=== PATIENT | female | born 1975 | race American Indian/Alaskan Native ===

== ENCOUNTER 2016-08-05 15:09 | Emergency (ER) | payer MEDICAID ==
[2016-08-05 15:09] VITALS: BMI 25.1
[2016-08-05 15:13] VITALS: RESP 18; O2SAT 100
[2016-08-05] MEDS ORDERED: Sodium Chloride 0.9% 1,000 ML IV ONE (15:29)
[2016-08-05] MEDS ORDERED: Sodium Chloride 0.9% 1,000 ML ONE (15:42)
--- NOTE | 2016-08-05 16:05 | C.PDOC ---
History Of Present Illness 40 y/o female presents to ED with complaints of left side abdominal pain, nausea and non bloody diarrhea for 4 days. Patient reports history of diverticulitis and similar pain in the past. Patient denies fever, chills, vomiting or any other complaints at this time. Time Seen by Provider: 08/05/16 15:11 Chief Complaint (Nursing): Abdominal Pain History Per: Patient History/Exam Limitations: no limitations Onset/Duration Of Symptoms: Days Current Symptoms Are (Timing): Still Present Location Of Pain/Discomfort: LUQ, LLQ Past Medical History Reviewed: Historical Data, Nursing Documentation, Vital Signs Vital Signs: Last Vital Signs Temp 99.1 F 08/05/16 15:10 Pulse 89 08/05/16 15:10 Resp 18 08/05/16 15:10 BP 120/83 08/05/16 15:10 Pulse Ox 100 08/05/16 18:11 - Medical History PMH: HTN, Migraine ("ONLY AROUND THE TIME I WAS GIVING .") Surgical History: Tonsillectomy - [facility] Procedures CONTROL BLEEDING IN ORAL CAVITY AND THROAT, OPEN APPROACH (04/23/16) Family History: States: Unknown Family Hx - Social History Hx Alcohol Use: No Hx Substance Use: No - Immunization History Hx Tetanus Toxoid Vaccination: No Hx Influenza Vaccination: No Hx Pneumococcal Vaccination: No Review Of Systems Constitutional: Negative for: Fever, Chills Cardiovascular: Negative for: Chest Pain Respiratory: Negative for: Shortness of Breath Gastrointestinal: Positive for: Nausea, Abdominal Pain, Diarrhea. Negative for : Vomiting Neurological: Negative for: Weakness, Headache, Dizziness Physical Exam - Physical Exam Appears: Non-toxic, In Acute Distress (mild,uncomfortable in pain) Skin: Warm, Dry, No Diaphoretic, No Pale, No Rash Head: Atraumatic, Normacephalic Eye(s): bilateral: Normal Inspection Oral Mucosa: Moist Neck: Normal ROM Chest: Symmetrical Cardiovascular: Rhythm Regular Respiratory: Normal Breath Sounds, No Rales, No Rhonchi, No Wheezing Gastrointestinal/Abdominal: Bowel Sounds, Soft, Tenderness (left upper and lower quadrant tenderness), No Mass, No Distention, No Guarding, No Rebound Back: Normal Inspection, No CVA Tenderness Extremity: Normal ROM Neurological/Psych: Oriented x3, Normal Speech Gait: Steady ED Course And Treatment - Laboratory Results Result Diagrams: 08/05/16 16:13 08/05/16 16:13 Lab Interpretation: No Acute Changes O2 Sat by Pulse Oximetry: 100 - CT Scan/US CT ABD/PELVIS CT/US Interpretation: Accession No. : [id number]. Patient Name / ID : WENDI MENDOZA / [id number]. Exam Date : 08/05/2016 17:44:55 ( Approved ). Study Comment : Sex / Age : F / 40Y. Creator : Arabella Castillo. Dictator : Arabella Castillo. Still Cleaner : Surg Nurse : Arabella Castillo. Approver2 : Report Date : 08/05/2016 18:00:33. My Comment : . PROCEDURE: CT Abdomen and Pelvis with contrast. HISTORY: left sided abd pain. COMPARISON: None. TECHNIQUE: Contrast dose: 100 mL Visipaque 320. Radiation dose: Total exam DLP = 580.24 mGy-cm. This CT exam was performed using one or more of the following dose reduction techniques: Automated exposure control, adjustment of the mA and/or kV according to patient size, and/or use of iterative reconstruction technique. FINDINGS: LOWER THORAX: Unremarkable. LIVER: Unremarkable. No gross lesion or ductal dilatation. GALLBLADDER AND BILE DUCTS : Unremarkable. PANCREAS: Unremarkable. No gross lesion or ductal dilatation. SPLEEN: Unremarkable. ADRENALS: Unremarkable. No mass. KIDNEYS AND URETERS: Unremarkable. No hydronephrosis. No solid mass. VASCULATURE: Unremarkable. No aortic aneurysm. BOWEL: Suspicious for ascending and descending colon wall thickening versus incomplete distention. Correlate clinically for colitis. No evidence of bowel obstruction. APPENDIX: No evidence of appendicitis. PERITONEUM: Unremarkable. No free fluid. No free air. LYMPH NODES: Unremarkable. No enlarged lymph nodes. BLADDER: Unremarkable. REPRODUCTIVE: The uterus is heterogeneous mildly enlarged likely contains fibroids. There is a 1.9 centimeters cyst at the left adnexa. BONES: No acute fracture. OTHER FINDINGS: None. IMPRESSION: Large bowel wall thickening versus incomplete distention. Correlate clinically for colitis. Heterogeneous uterus likely contains small fibroid. 1.9 centimeter cyst at the left adnexa. Otherwise no evidence of acute pathology in the abdomen and pelvis. Medical Decision Making Medical Decision Making: Impression: Left side abdominal pain Plan: labs, ct scan Progress: Labs unremarkable, no leukocytosis or bands. CT shows large bowel wall thickening, and symptoms c.w colitis. Patient reevaluated and reports feeling midly better stating pain had improved but returned after return from CT scan I explained all results and provide copy of labs and CT report. Plan is to discharge home with antibiotics and recommend fluids and CLD with progression as tolerated. Patient feels comfortable going home and agreeable with plan. Instruct to follow up outpatient with PCP Dr Patricio Disposition Counseled Patient/Family Regarding: Diagnosis, Need For Followup - Disposition Referrals: Usama Patricio MD [Medical Doctor] - Disposition: HOME/ ROUTINE Disposition Time: 18:05 Condition: STABLE Additional Instructions: Your labs and CT scan shows colitis Take antibiotics as prescribed and Bentyl as needed for pain Start with clear liquid diet and proceed as tolerated Drink fluids Follow up with your primary physician Dr Patricio Prescriptions: Ciprofloxacin HCl [Cipro] 500 mg PO BID #14 tab Dicyclomine [Bentyl] 10 mg PO QID #20 cap metroNIDAZOLE [Flagyl] 500 mg PO Q8 #21 tab Instructions: High Fiber Diet (ED), Clear Liquid Diet (ED), Colitis (ED) - POA Present On Arrival: None - Clinical Impression Clinical Impression: Colitis, Abdominal pain - PA / DISPATCHER CLERK / Resident Statement MD/DO has reviewed & agrees with the documentation as recorded. - Scribe Statement The provider has reviewed the documentation as recorded by the Jose Miguel Hatfield All medical record entries made by the Jose Miguel were at my direction and personally dictated by me. I have reviewed the chart and agree that the record accurately reflects my personal performance of the history, physical exam, medical decision making, and the department course for this patient. I have also personally directed, reviewed, and agree with the discharge instructions and disposition.
[2016-08-05 16:19] LABS: BASO % 0.7 % (0.0-2.0); EOS # 0.1 K/uL (0.0-0.7); EOS % 1.6 % (0.0-4.0); HEMATOCRIT 41.7 % (34.0-47.0); LYMPH # 1.9 K/uL (1.0-4.3); LYMPH % 25.4 % (20.0-40.0); MEAN CELL VOLUME 89.4 fL (81.0-99.0); MEAN CORPUSCULAR HEMOGLOBIN 29.7 pg (27.0-31.0); MEAN CORPUSCULAR HGB CONC 33.2 g/dL (33.0-37.0); MEAN PLATELET VOLUME 8.7 fL (7.2-11.7); MONO # 0.7 K/uL (0.0-0.8); MONO % 9.9 % (0.0-10.0); RED CELL DISTRIBUTION WIDTH 13.7 % (11.5-14.5); WHITE BLOOD COUNT 7.4 K/uL (4.8-10.8)
[2016-08-05 16:21] LABS: RBC URINE 4 /hpf (0-3); URINE BACTERIA RARE (<OCC); URINE BILIRUBIN NEGATIVE (NEGATIVE); URINE BLOOD NEGATIVE (NEGATIVE); URINE COLOR Amber (YELLOW); URINE GLUCOSE (UA) NORMAL (Normal); URINE KETONE NEGATIVE (NEGATIVE); URINE LEUKOCYTE ESTERASE NEG Leu/uL (Negative); URINE PROTEIN 1+ mg/dL (NEGATIVE); URINE UROBILINOGEN NORMAL mg/dL (0.2-1.0); WBC URINE 5 /hpf (0-5)
[2016-08-05 16:33] LABS: CHLORIDE 101 mmol/L (98-107); POTASSIUM 3.5 mmol/L (3.6-5.2); SODIUM 138 mmol/L (132-148)
[2016-08-05 16:35] LABS: AST/SGOT 24 U/L (14-36); BILIRUBIN,TOTAL 1.1 mg/dL (0.2-1.3); CARBON DIOXIDE 24 mmol/L (22-30); GFR AFRICAN-AMERICAN > 60
[2016-08-05 16:36] LABS: ALB/GLOB RATIO 1.3 (1.0-2.1); ALKALINE PHOSPHATASE 75 U/L (38-126); ALT/SGPT 22 U/L (9-52); BLOOD UREA NITROGEN 10 mg/dL (7-17); CALCIUM 8.5 mg/dl (8.6-10.4); GLUCOSE,RANDOM 89 mg/dL (65-105); TOTAL PROTEIN 7.5 g/dL (6.3-8.3)
[2016-08-05] MEDS ORDERED: Iodixanol 320 MG/ML 100 ML BOTTLE IV ONE (17:09)
--- NOTE | 2016-08-05 18:01 | CT ---
PROCEDURE: CT Abdomen and Pelvis with contrast HISTORY: left sided abd pain COMPARISON: None. TECHNIQUE: Contrast dose: 100 mL Visipaque 320 Radiation dose: Total exam DLP = 580.24 mGy-cm. This CT exam was performed using one or more of the following dose reduction techniques: Automated exposure control, adjustment of the mA and/or kV according to patient size, and/or use of iterative reconstruction technique. FINDINGS: LOWER THORAX: Unremarkable. LIVER: Unremarkable. No gross lesion or ductal dilatation. GALLBLADDER AND BILE DUCTS: Unremarkable. PANCREAS: Unremarkable. No gross lesion or ductal dilatation. SPLEEN: Unremarkable. ADRENALS: Unremarkable. No mass. KIDNEYS AND URETERS: Unremarkable. No hydronephrosis. No solid mass. VASCULATURE: Unremarkable. No aortic aneurysm. BOWEL: Suspicious for ascending and descending colon wall thickening versus incomplete distention. Correlate clinically for colitis. No evidence of bowel obstruction. APPENDIX: No evidence of appendicitis. PERITONEUM: Unremarkable. No free fluid. No free air. LYMPH NODES: Unremarkable. No enlarged lymph nodes. BLADDER: Unremarkable. REPRODUCTIVE: The uterus is heterogeneous mildly enlarged likely contains fibroids. There is a 1.9 centimeters cyst at the left adnexa. BONES: No acute fracture. OTHER FINDINGS: None. IMPRESSION: Large bowel wall thickening versus incomplete distention. Correlate clinically for colitis. Heterogeneous uterus likely contains small fibroid. 1.9 centimeter cyst at the left adnexa. Otherwise no evidence of acute pathology in the abdomen and pelvis.
[2016-08-05 18:27] VITALS: BP 117/80; PULSE 82; TEMP 98.9
== END 2016-08-05 18:27 | disposition home or self-care (01) ==
LOC: C.ER 15:09
DX: K52.9 Noninfective gastroenteritis and colitis, unspecified (principal)
CPT/HCPCS: 74177; 80053; 81001; 83690; 84703; 85025; 96361; 96374; 96375; 99284; J1885; J2405; J7040; Q9967